=== PATIENT | male | born 2000 | race Caucasian/White ===

== ENCOUNTER 2019-07-14 16:48 | Emergency (ER) | payer MEDICAID, OTHER ==
[2019-07-14] MEDS ORDERED: ACETAMINOPHEN EXTRA STRENGTH 500 MG TABLET ONE (17:25)
[2019-07-14] MEDS ORDERED: TETANUS/DIPHTHERIA TOXOID [ADULT] 0.5 ML VIAL IM ONE (17:25)
== END 2019-07-14 19:01 | disposition home or self-care (01) ==
LOC: EDH 16:48
DX: S01.511A Laceration without foreign body of lip, initial encounter (principal); S60.222A Contusion of left hand, initial encounter; Y04.0XXA Assault by unarmed brawl or fight, initial encounter; Y93.89 Activity, other specified; Y92.238 Other place in hospital as the place of occurrence of the external cause; Y99.8 Other external cause status
CPT/HCPCS: 12011; 73130; 90471; 90714